=== PATIENT | male | born 1955 | race Caucasian/White ===

== ENCOUNTER 2019-09-03 14:00 | Outpatient (CLI) | payer BC, SELFPAY ==
--- NOTE | ~2019-09-03 | US_ITS ---
EXAMINATION: US art doppler w press LE BI DATE: 09/03/2019 15:02 CDT INDICATION: Peripheral vascular disease. TECHNIQUE: Segmental pressures and plethysmographic and Doppler waveforms of the brachial and lower e xtremity arteries were obtained. COMPARISON: None. FINDINGS: Right and left brachial artery pressures of 145 mm Hg and 150 mm Hg, respectively, are concordant (no rmal difference <= 30 mmHg). The right high-thigh pressure index is 1.12 (normal > 1.2). The right ankle-brachial index (BLAS) is 1 .23 (normal >= 0.9-1.0). The right great toe-brachial index (TBI) is 1.02 (normal >= 0.60). The right lower extremity segmental pressure gradients are normal (normal gradients <= 20-30 mmHg between sarah cent levels on the same leg or the same levels on the two legs). Arterial Doppler waveforms are bipha sic. The left high-thigh pressure index is 0.67. The left BLAS is 0.67. The left TBI is 0.47. The left lowe r extremity segmental pressure gradients are within normal limits. Arterial Doppler waveforms are mon ophasic. IMPRESSION: 1. Diminished left high thigh pressure index, ankle-brachial index and toe brachial index, consistent with moderate inflow disease. Reviewed, dictated and finalized at location A. IMPRESSION: 1. Diminished left high thigh pressure index, ankle-brachial index and toe brac hial index, consistent with moderate inflow disease.
== END 2019-09-03 14:01 | disposition home or self-care (01) ==
LOC: ANHIMG 14:08
PROVIDERS: PCP Internal Medicine; Visit Provider Internal Medicine
DX: I73.9 Peripheral vascular disease, unspecified (principal)
CPT/HCPCS: 93923

== ENCOUNTER 2019-09-14 08:19 | Outpatient (CLI) | payer BC, SELFPAY ==
--- NOTE | ~2019-09-14 | CT_ITS ---
EXAMINATION: CTA abd aorta runoff DATE: 09/14/2019 09:47 INDICATION: Peripheral vascular disease, unspecified. TECHNIQUE: Computed tomographic angiography (CTA) of the abdominal, pelvis, and both lower extremitie s was performed with 150 mL Omnipaque-350 intravenous contrast. Automated exposure control and iterat christopher reconstruction technique were employed. The dose-length product was 741.33 mGy-cm. Maximum intens ity projection 3D-reconstructions of the arteries were created by the technologist on a separate work station. COMPARISON: Arterial Doppler and segmental pressures 09/03/2019 FINDINGS: ABDOMINAL AORTA AND ITS BRANCHES: There is atherosclerosis of abdominal aorta without significant stenosis. There is moderate stenosis of celiac axis. There is no significant stenosis of superior mesenteric artery, inferior mesenteric a rtery, or the renal arteries. PELVIC VASCULATURE: There is mild stenosis of right common iliac artery, external iliac artery, and internal iliac artery . There is total occlusion of left common iliac artery and external iliac artery with reconstitution of flow in left common femoral artery. There is reconstitution of flow in left internal iliac artery. RIGHT LOWER EXTREMITY VASCULATURE: There is mild stenosis of right common femoral artery. There is no significant stenosis of the profun da femoris, superficial femoral artery, popliteal artery, tibioperoneal trunk, peroneal artery, or an terior or posterior tibial arteries. LEFT LOWER EXTREMITY VASCULATURE: There is mild stenosis of left common femoral artery. There is no significant stenosis of the profund a femoris, superficial femoral artery, popliteal artery, tibioperoneal trunk, peroneal artery, or ant erior or posterior tibial arteries. ADDITIONAL FINDINGS: The visualized portions of the lung bases demonstrate mild atelectasis in the left. No pleural effusi on. The heart size is normal. No pericardial effusion. The liver, gallbladder, spleen, pancreas, adre nal glands, and kidneys are normal. There is diverticulosis of the colon without evidence of divertic ulitis. There are no dilated loops of bowel. The appendix is normal. There are no pathologically enla rged lymph nodes. There is no free intraperitoneal fluid. There is mild lumbar spondylosis. IMPRESSION: 1. 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 Reviewed, dictated and finalized at location A.
[2019-09-14 09:21] LABS: Estimated Glomerular Filt Rate > 60
== END 2019-09-14 08:20 | disposition home or self-care (01) ==
PROVIDERS: PCP Internal Medicine; Visit Provider Internal Medicine
DX: I73.9 Peripheral vascular disease, unspecified (principal); I74.5 Embolism and thrombosis of iliac artery
CPT/HCPCS: 36415; 75635; Q9967

== ENCOUNTER 2021-03-27 16:28 | Emergency (ER) | payer BC, SELFPAY ==
--- NOTE | ~2021-03-27 | US_ITS ---
EXAMINATION: US arterial ankle brachial ind DATE: 03/27/2021 18:34 INDICATION: Cold pulseless left lower extremity TECHNIQUE: Segmental pressures and plethysmographic and Doppler waveforms of the brachial and lower e xtremity arteries were obtained. COMPARISON: 09/03/2019 ultrasound arterial Doppler of the lower extremities 09/14/2019 CTA abdomen abdominal aorta runoff FINDINGS: Right and left brachial artery pressures of 174 mm Hg and 177 mm Hg, respectively, are concordant (no rmal difference <= 30 mmHg). The right ankle-brachial index (BLAS) is 1.12 (normal >= 0.9-1.0). The right great toe-brachial index (TBI) is 0.49 (normal >= 0.65). Arterial Doppler waveforms are biphasic at the dorsalis pedis and pos terior tibial arteries. The left BLAS is 0. The left TBI is 0. Arterial Doppler waveforms absent. IMPRESSION: Severe left lower extremity arterial occlusion proximal to the left dorsalis pedis and p osterior tibial arteries Reviewed, dictated and finalized at Location A. Reviewed, dictated and finalized at location A. HANDISE ADJUSTMENT CLERK IMPRESSION: Severe left lower extremity arterial occlusion proximal to the lef t dorsalis pedis and posterior tibial arteries
--- NOTE | ~2021-03-27 | XR_ITS ---
XR chest 1V portable DATE: 03/27/2021 19:01 INDICATION: Left lower extremity arterial occlusion, cold and numb pulseless left lower extremity TECHNIQUE: Portable upright AP chest on 03/27/2021 at 1856 hours COMPARISON: None FINDINGS: Normal heart size. No hilar or mediastinal enlargement. No pulmonary infiltrate or consolid ation, pleural effusion or pulmonary vascular congestion or pneumothorax. IMPRESSION: No active cardiopulmonary disease Reviewed, dictated and finalized at location A. NSED PROFESSIONAL COUNSELOR
[2021-03-27 17:30] VITALS: BP 152/87; PULSE 92; RESP 19; TEMP 36.7; O2SAT 100
--- NOTE | 2021-03-27 18:29 | ED.EXTPRO ---
HPI - Extremity Problem General Chief complaint: Extremity Problem,Nontraumatic Stated complaint: leg cramps, numbness in foot Time Seen by Provider: 03/27/21 18:06 Source: patient, family and RN notes reviewed Limitations: no limitations History of Present Illness HPI Narrative: Patient 66 years old white male came to the emergency room with his complaining of cramps at the left calf muscle started last night. Patient denies any injury. History of vascular bypass from the same leg 1-1/2 years ago at [facility]. Currently patient on aspirin and cholesterol medications. Patient denies any smoking, drinking or using drugs. Patient is not vaccinated for COVID, tested positive for Covid on March 14 of this month. Patient was asymptomatic at that time and his only complaint with general fatigue. Patient denies any fever, chills, nausea, vomiting, chest pain, shortness of breath. Related Data Home Medications Medication Instructions Recorded Confirmed Adult Aspirin 81 mg PO DAILY 03/27/21 03/27/21 atorvastatin 20 mg PO DAILY 03/27/21 03/27/21 Allergies Allergy/AdvReac Type Severity Reaction Status Date / Time Penicillins Allergy Unknown WAS Verified 03/27/21 19:05 -THROAT SWELLING Review of Systems Review of Systems: CONSTITUTIONAL: Denies fever, chills, or sweats. EYES: Denies visual changes, redness, or discharge. ENT: Denies rhinorrhea, congestion, sore throat, or otalgia. CARDIOVASCULAR: Denies chest pain, palpitations, or edema. RESPIRATORY: Denies cough or dyspnea. GASTROINTESTINAL: Denies abdominal pain, nausea, vomiting, or diarrhea. GENITOURINARY: Denies dysuria or hematuria. SKIN: Denies rash or itching. MUSCULOSKELETAL: Denies back pain, joint pain, or myalgia. NEUROLOGIC: Denies headache, numbness, or weakness. PSYCHIATRIC: Denies anxiety or depression. Exam Narrative: General appearance: Well-developed, well-nourished Skin: Icy cold left lower leg distal to left knee,, bluish discoloration of the left foot, no pedal or tibialis posterior Head: Normocephalic, nontraumatic Eyes: Clear conjunctiva ENT: Oropharynx normal, ears normal, nose normal Neck: Supple, nontender Chest and respiratory: Airway patent, no respiratory distress, no accessory muscle use Heart: Regular rate/rhythm Abdomen: Soft, nontender, no organomegaly, quiet bowel sounds Vascular: Left femoral pulse is intact, left tibialis posterior and dorsalis pedis are absent Musculoskeletal: Normal range of motion, nontender back Neurologic: Alert and oriented ?3, DIRECTOR LEARNING is normal as tested, no gross motor deficit Course Course Emergency Course: Stable Consultations Consultation #1: Dr. de la o, [facility] ED, who accepted patient transfer Date: 03/27/21 Time: 19:59 Vital Signs Vital signs: Vital Signs Temperature 36.7 C 03/27/21 17:30 Pulse Rate 92 03/27/21 17:30 Respiratory Rate 19 03/27/21 17:30 Blood Pressure 152/87 H 03/27/21 17:30 Pulse Oximetry 100 03/27/21 17:30 Temperature 36.7 C 03/27/21 17:30 Pulse Rate 83 03/27/21 19:07 Respiratory Rate 16 03/27/21 19:07 Blood Pressure 181/98 H 03/27/21 19:07 Pulse Oximetry 99 03/27/21 19:07 MDM - Extremity (Nontraumatic) MDM Narrative Medical decision making narrative: Patient presents with pain and cold left foot Lab Data Result diagrams: 03/27/21 19:01 03/27/21 19:01 Labs: Lab Results 03/27/21 03/27/21 03/27/21 Range/Units 19:01 19:01 19:01 WBC 13.6 H (4.5-10.0) K/mm3 RBC 4.50 L (4.6-6.20) M/mm3 Hgb 13.9 L (14.0-18.0) g/dL Hct 40.8 L (42.0-52.0) % MCV 90.7 (80-100) fl MCH 30.9 (26-34)
--- NOTE | 2021-03-27 18:50 | ECG_ITS ---
Measurements Intervals [place] Rate: 81 P: 51 RI: 156 QRS: 63 QRSD: 79 T: 54 QT: 404 QTc: 469 Interpretive Statements SINUS RHYTHM BORDERLINE R WAVE PROGRESSION, ANTERIOR LEADS BASELINE ARTIFACT- I, II, AVR BORDERLINE ECG Electronically Signed On 03-27-2021 20:55:03 PLAQUE MAKER by Reagan Ramírez D.O.
[2021-03-27 19:07] VITALS: BP 181/98; PULSE 83; RESP 16; O2SAT 99
[2021-03-27 19:19] LABS: Basophils Percent Auto 0.2 % (0.2-1.2); Eosinophils Percent Auto 0.1 % (0-4.4); Hematocrit 40.8 % (42.0-52.0); Hemoglobin 13.9 g/dL (14.0-18.0); Immature Granulocyte Absolute 0.09 K/mm3 (0.00-0.031); Immature Granulocyte Percent A 0.7 % (0-0.5); Lymphocytes Absolute Auto 1.52 K/mm3 (0.9-3.2); Lymphocytes Percent Auto 11.1 % (18.3-44.2); Mean Corpuscular HGB Conc 34.1 g/dl (32-36); Mean Corpuscular Hemoglobin 30.9 pg (26-34); Mean Corpuscular Volume 90.7 fl (80-100); Mean Platelet Volume 8.6 fl (7.4-10.4); Monocytes Absolute Auto 0.7 K/mm3 (0.1-0.6); Monocytes Percent Auto 5.4 % (2.6-8.5); Neutrophils Absolute Auto 11.3 K/mm3 (1.3-6.7); Neutrophils Percent Auto 82.5 % (45.5-73.1); Platelet Count Result 233 k/mm3 (150-375); Red Cell Distribution Width 12.7 % (11.5-14.5); White Blood Count 13.6 K/mm3 (4.5-10.0)
[2021-03-27 19:31] LABS: Anion Gap 5 mmol/L (8-16); Blood Urea Nitrogen 16 mg/dL (9-20); Calcium 9.6 mg/dL (8.4-10.2); Carbon Dioxide 29 mmol/L (22-30); Chloride 109 mmol/L (98-107); Estimated Glomerular Filt Rate > 60; Glucose 106 mg/dL (65-110); Potassium 4.3 mmol/L (3.4-5.0); Sodium 143 mmol/L (137-145)
[2021-03-27 19:33] LABS: INR 1.1; Prothrombin Time 14.2 Seconds (11.1-14.7)
[2021-03-27 19:34] LABS: Partial Thromboplastin Time 32.6 SECONDS (22.3-36.8)
--- NOTE | 2021-03-27 19:54 | PC.NURSE ---
Pt has no palpable or pulses heard by dopplar in left ankle or foot.
--- NOTE | 2021-03-27 20:05 | PC.NURSE ---
called [facility] to request transport to [facility]. ETA [id number] Called [facility] and [facility] to request transport. Not available called [facility] to request transport. Caitlin ritchie is out on a call and they will call back Calling [facility] to upgrade to lights and sirens. ETA 15 minutes.
[2021-03-27] MEDS: HEPARIN SODIUM 5,000 UNITS/ML VIAL 4000 UNITS IV PUSH (20:14)
[2021-03-27] MEDS: HEPARIN SOD/D5W 100 UNITS/ML 25,000 UNITS/250 ML BAG 8 UNITS IV CONT (20:14)
[2021-03-27 20:27] VITALS: BP 167/84; PULSE 94; RESP 16; O2SAT 98
--- NOTE | 2021-03-27 20:34 | PC.NURSE ---
pt left department with heparin drip infusing
== END 2021-03-27 20:37 | disposition short-term general hospital (02) ==
PROVIDERS: Emergency Provider Emergency Medicine; PCP Internal Medicine
DX: I70.202 Unspecified atherosclerosis of native arteries of extremities, left leg (principal); Z79.82 Long term (current) use of aspirin; Z86.16 Personal history of COVID-19; R94.31 Abnormal electrocardiogram [ECG] [EKG]
CPT/HCPCS: 36415; 71045; 80048; 85025; 85610; 85730; 93005; 93922; 96365; 99285; J1644

== ENCOUNTER 2021-07-16 08:00 | Outpatient (RCR) | payer BC, MEDICARE, SELFPAY ==
--- NOTE | 2021-05-21 16:32 | PTOPEVAL ---
PHYSICAL THERAPY INITIAL EVALUATION Thank you for referring Rajat Mccarty to [facility].? The patient is scheduled to be seen for therapy? 2x/week for 4 weeks. Please review, sign, date and return this plan of care BERHANE. I agree with and certify that the following plan of care is medically necessary. Referring Physician Date Attending Provider: Lisa Alaniz *PT Outpatient Evaluation Start: 05/21/21 Evaluation Information Diagnosis Revascularization. Onset ~03/27/21 Subjective Information Pt was admitted to the ER on 1 Query Text:As Reported By Patient with limb ischemia and Family multiple blood clots. He then went through a series of revascularization and fasciotomies and had delayed wound closure. Pt states he has some numbness and tingling but this has improved with time. He reports a decrease in size and strength in his L LE in his calf and thigh musculature. He reports leg weakness and range of motion deficits in his L ankle, knee, and hip. Pt states when he standing for any length of time, his legs start to swell greater than his R LE. 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 Additional Prior Level of Function Pts job requires stair Comments ambulation and ladder climbing frequently and multiple times a day. Pain Assessment Left Osuna(s) Reported Pain Level 2 Pain Description Incisional,Tightness Pain Frequency Acute,Intermittent Lower Extremity Range of Motion Gross Lower Extremity Range of Motion ankle dorsiflexion L,R: -1deg, Comments 18 deg Knee Range of Motion Left Knee Flexion Range of Motion - Active 125 Knee Extension Range of Motion - Active -6 Knee Range of Motion Comments R knee active 0-130 Lower Extremity Muscle Strength Testing General Lower Extremity Strength WFL/Right Gross Lower Extremity Strength L LE: hip flexion 4+/5 knee ext 4+/5 knee flexion 4/5 Muscle Length Testing Muscle Length Testing Left Hamstring
--- NOTE | 2021-06-18 10:20 | PTOPEVAL ---
PHYSICAL THERAPY PROGRESS REPORT. Thank you for referring Rajat Mccarty to [facility].? The patient is scheduled to be seen for therapy? 2x/week for 4 weeks. Please review, sign, date and return this plan of care BERHANE. I agree with and certify that the following plan of care is medically necessary. Referring Physician Date Attending Provider: Lisa Alaniz Evaluation Information Diagnosis Revascularization. Onset ~03/27/21 Subjective Information Pt states he feels like he is Query Text:As Reported By Patient/ walking without a limb. 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 In regards to his previous job, he states he does not feel comfortable performing a full depth squat, holding high amounts of weight, and climbing up and down a ladder. Pain Assessment Left Osuna(s) Reported Pain Level 0 Pain Description Tightness Additional Pain Comments just tightness Lower Extremity Range of Motion Gross Lower Extremity Range of Motion ankle dorsiflexion L,R: 2 deg, Comments 18 deg Knee Range of Motion Left Knee Flexion Range of Motion - Active 128 Knee Extension Range of Motion - Active 0 Knee Range of Motion Comments R knee active 0-130 Lower Extremity Muscle Strength Testing General Lower Extremity Strength WFL/Right Gross Lower Extremity Strength L LE: hip flexion 5/5 knee ext 5/5 knee flexion 5/5 B glute med 4+/5 Muscle Length Testing Muscle Length Testing Left Hamstring Length -20 Right Hamstring Length -18 Right Prone Knee Flexor Muscle Length ( 130 Left Prone Knee Flexor Muscle Length ( 130 Gastrocnemius Length (R) Moderate Tightness,(L) Moderate Tightness PT Clinical Summary Rajat presents to therapy today for his progress report following 8 visits of therapy. Today he demonstrates range of motion improvements but still continues to lack moderate amounts of dorsiflexion. He gait has improved, he is still unable to run, shuffle, and backwards
--- NOTE | 2021-07-16 10:00 | PTOPEVAL ---
PHYSICAL THERAPY PROGRESS REPORT AND DISCHARGE SUMMARY. Thank you for referring Rajat Mccarty to [facility].? The patient is scheduled to be discharged from therapy at this time. Please review, sign, date and return this plan of care BERHANE. I agree with and certify that the following plan of care is medically necessary. Referring Physician Date Attending Provider: Lisa Alaniz Assessment Status Discharge Evaluation Information Diagnosis Revascularization. Onset ~03/27/21 Subjective Information Pt states he has drastically Query Text:As Reported By Patient/ improved. He states his ankle Family feels much more mobile, and like his walking is more normal. He states he spent 3 hours straight on his feet yesterday, and last night his knee, ankles, and toes swelled up. He reports increased knee and ankle stiffness in the morning that last about ten minutes. He states sitting with his leg in a dependent position also causes swelling. Pain Assessment Left Ankle(s) Reported Pain Level 3 Pain Description Aching Left Osuna(s) Reported Pain Level 5 Pain Description Aching Lower Extremity Range of Motion Gross Lower Extremity Range of Motion ankle dorsiflexion with knee Comments extended L: 2, passive: 5 ankle dorsiflexion with knee flexed L: 4 ankle dorsiflexion with knee extended R: 18 ankle dorsiflexion with knee flexed R: 18 Knee Range of Motion Left Knee Flexion Range of Motion - Active 128 Knee Extension Range of Motion - Active 0 Knee Range of Motion Comments R knee active 0-130 Upper Extremity Muscle Strength Testing General Upper Extremity Strength B LE grossly 5/5 L glute med 4+/5 Muscle Length Testing Left Hamstring Length -20 Right Hamstring Length -20 Right Prone Knee Flexor Muscle Length ( 100 Left Prone Knee Flexor Muscle Length ( 100 Gastrocnemius Length (R) Moderate Tightness,(L) Moderate Tightness Palpation Assessment Palpation just beneath the lateral malleolus Balance Assessment Timed Up and Go Test (TUG) (Seconds) 8 Assistive Devices None 5 Time Sit to Stand Time in Seconds 11 5 Ti
== END 2021-07-16 16:19 | disposition home or self-care (01) ==
LOC: ANHPT 08:00
PROVIDERS: PCP Internal Medicine
DX: I73.9 Peripheral vascular disease, unspecified (principal); I99.8 Other disorder of circulatory system; Z48.812 Encounter for surgical aftercare following surgery on the circulatory system
CPT/HCPCS: 97110; 97112; 97140; 97161; 97530

== ENCOUNTER 2023-01-05 01:47 | Day surgery (SDC) | payer MEDICARE, SELFPAY ==
[2022-12-27 12:37] VITALS: BMI 25.0
--- NOTE | 2023-01-04 17:45 | PM.HPGS ---
History of Present Illness History of Present Illness Consent: Risks, benefits, and alternatives have been discussed and questions answered. Patient agrees to proceed with procedure. Chief complaint: hx of colon polyps Narrative: Rajat Mccarty is a 67 year old male Referred for colon cancer screening. He had a polyp removed about 6 years ago Review of Systems Review of Systems: All systems reviewed & are unremarkable except as noted in HPI and below PMFSH Social History Social History Years smoked: 14 Smoking status: Former smoker Tobacco type: cigarettes Alcohol intake: current Drinks per week: 0 Substance use: never Substance use type: does not use Living arrangements: with family Spiritual care concerns: No Meds Home Medications and Allergies Home Medications Medication Instructions Recorded Confirmed Type Adult Aspirin 81 mg PO DAILY 03/27/21 12/27/22 History atorvastatin 20 mg tablet 20 mg PO DAILY 03/27/21 12/27/22 History Xarelto 20 mg PO DAILY 12/27/22 12/27/22 History Allergies Allergy/AdvReac Type Severity Reaction Status Date / Time Penicillins Allergy Unknown WAS Verified 01/05/23 08:56 -THROAT SWELLING Exam Resp: Auscultation: clear to auscultation bilaterally Cardio: Rate: regular rate Rhythm: regular rhythm GI: GI Palp: Yes Soft to palpation and No Tenderness to palpation present (GI) Assessment and Plan Assessment and plan (1) Colon cancer screening: Code(s): Z12.11 - Encounter for screening for malignant neoplasm of colon Status: Acute Assessment and Plan: Colonoscopy with possible biopsy or polypectomy or cautery or injection of substances.
[2023-01-05 08:58] VITALS: BP 145/79; PULSE 72; RESP 20; TEMP 36.3; O2SAT 98; BMI 24.7
[2023-01-05] MEDS: LACTATED RINGERS 1,000 ML 150 ML IV CONT (09:04)
--- NOTE | 2023-01-05 09:37 | P.PNAN_ITS ---
Anes - Initial Pre Proc Eval Procedure: Operation Date: 01/05/23 10:15 Proposed Procedures p Colonoscopy - Ace Gloria MD Date/Time: 01/05/23 09:37 Surgeon: Ace Gloria MD Pre Op Diagnosis: hx of colon polyps Patient Data Age: 67 Gender: M Height: 1.65 m Weight: 67.5 kg Last Vital Signs Temp 97.3 F L 01/05/23 08:58 Pulse 72 01/05/23 08:58 Resp 20 01/05/23 08:58 BP 145/79 H 01/05/23 08:58 Pulse Ox 98 01/05/23 08:58 O2 Del Method Room Air 01/05/23 08:58 Allergies Allergy/AdvReac Type Severity Reaction Status Date / Time Penicillins Allergy Unknown WAS Verified 01/05/23 08:56 INFANT-THROAT SWELLING Home Medications Medication Instructions Recorded Confirmed Type Adult Aspirin 81 mg PO DAILY 03/27/21 12/27/22 History atorvastatin 20 mg tablet 20 mg PO DAILY 03/27/21 12/27/22 History Xarelto 20 mg PO DAILY 12/27/22 12/27/22 History Patient hx anesthesia problems: none Family hx anesthesia problems: none Results Review: All pre-operative results and documents have been reviewed as part of the pre- operative evaluation. [facility] Social History Social History Years smoked: 14 Smoking status: Former smoker Tobacco type: cigarettes Alcohol intake: current Drinks per week: 0 Substance use: never Substance use type: does not use Living arrangements: with family Spiritual care concerns: No Anes - Eval Final PreProcedure Day of Procedure 01/05/23 09:37 Patient weight: normal Heart: regular rate and rhythm Lungs: clear to auscultation Airway: Mallampati scale class II Neurological: alert and oriented Last oral intake: >/= 8 hours ASA classification: III Emergent: no Anesthetic plan: proceed Anesthesia type and monitoring: general GIVS and standard monitoring Results Review: All pre-operative results and documents have been reviewed as part of the pre- operative evaluation. Informed Consent: The patient's anesthetic plan and its attendant risks and benefits were discussed with the patient/family/POA. Questions were solicited and answers provided to the satisfaction of the patient/family/POA.
[2023-01-05 10:19] VITALS: BP 94/59; PULSE 66; RESP 15; O2SAT 98
[2023-01-05 10:29] VITALS: BP 111/61; PULSE 57; RESP 15; O2SAT 96
[2023-01-05 10:39] VITALS: BP 131/74; PULSE 63; RESP 14; O2SAT 100
== END 2023-01-05 11:07 | disposition home or self-care (01) ==
PROVIDERS: PCP Internal Medicine; Visit Provider Internal Medicine Gastroenterology
PROC: 0DJD8ZZ Inspection of Lower Intestinal Tract, Via Natural or Artificial Opening Endoscopic (ICD-10-PCS; CPT 45378; principal; 2023-01-05 10:15)
DX: Z12.11 Encounter for screening for malignant neoplasm of colon (principal); K63.5 Polyp of colon; K57.30 Diverticulosis of large intestine without perforation or abscess without bleeding; Z79.82 Long term (current) use of aspirin; Z79.01 Long term (current) use of anticoagulants; Z86.010 Personal history of colon polyps; Z87.891 Personal history of nicotine dependence
CPT/HCPCS: 45380; 45388; 88305; J2704; J7120

== ENCOUNTER 2025-01-30 07:48 | Outpatient (CLI) | payer MEDICARE, SELFPAY ==
--- NOTE | ~2025-01-30 | US_ITS ---
EXAMINATION: US aorta, 01/30/2025 8:11 CREMATORY OPERATOR HISTORY: AAA Comparison: None Technique: Andrews-scale and color Doppler images were obtained. Findings: There is no aneurysmal dilatation or ectasia of the aorta identified. The visualized proximal common iliac vessels are unremarkable. IMPRESSION: No aneurysm identified Reviewed, dictated and finalized at location P. ATORY OPERATOR IMPRESSION: No aneurysm identified
== END 2025-01-30 07:49 | disposition home or self-care (01) ==
PROVIDERS: PCP Internal Medicine; Visit Provider Internal Medicine
DX: I71.40 Abdominal aortic aneurysm, without rupture, unspecified (principal)
CPT/HCPCS: 76775